=== PATIENT | female | born 1990 | race Caucasian/White ===

== ENCOUNTER 2017-10-09 16:15 | Observation (INO) | payer MEDICAID ==
[~2017-10-09] VITALS: Ht 170.2 cm; Wt 76.0 kg
[~2017-10-09 16:15] MED LIST: CALNTAB; IBUP-232 PO
[2017-10-09] MEDS ORDERED: LACTATED RINGER'S 1000 ML INJ 1,000 ML IV SCH (16:23)
[2017-10-09] MEDS ORDERED: DOCUSATE SODIUM 100 MG CAP PO PRN (16:30)
[2017-10-09] MEDS ORDERED: ZOLPIDEM TARTRATE 5 MG TAB PO PRN (16:30)
[2017-10-09] MEDS ORDERED: SODIUM CHLORIDE 0.9% FLUSH 10 ML FLUSH IV FLUSH PRN (16:30)
[2017-10-09] MEDS ORDERED: ONDANSETRON HCL 4 MG/2 ML VIAL IV PUSH PRN (16:30)
--- NOTE | 2017-10-09 16:45 | HHI.HP ---
HPI Chief Complaint admission for pre-eclampsia workup Travel History International Travel<30 Days: No Contact w/Intl Traveler<30Days: No Known Affected Area: No History of Present Illness HPI PT is a 27 yo with iup at 32w 2days being admitted for pre-eclampsia workup. She was seen at 30w visit and was c/o feeling dizzy and seeing spots. She had PIH labs with P:C of 0.39 and was advised to perform a 24 hour urine. Collection noted 525 mg of protein. She did have hyperemesis during first and second trimester. Also had migraines, needed fioricet. Good FM, no ctx/vb/LOF. Weeks Gestation: 32 Para: 2 : 3 History Past Medical History Narrative Medical H/o cervical dysplasia s/p excisional procedure x 2 in 2012 Obstetric History Obstetric History G1 03/2008 M 39 weeks, 7 lb 14 oz, no complications G2 05/2016 F 38w 6lb 14 oz Past Surgical History Narrative Surgical Leep and CKC Social History Alcohol Use: No Tobacco Use: No Substance Abuse: Yes (MJ use) Allergies-Medications (Allergen,Severity, Reaction): Coded Allergies: acetaminophen (Unverified Allergy, Severe, NAUSEA AND VOMITING, 02/19/17) hydrocodone (Unverified Allergy, Severe, NAUSEA AND VOMITING, 02/19/17) penicillin G (Unverified Allergy, Mild, Nausea/Vomiting, 02/19/17) Home Meds Active Scripts Ibuprofen (Ibuprofen) 600 Mg Tab, 600 MG PO Q6H Y for CRAMPING, #30 TAB Prov:Merlene Zarate MD 05/14/16 Reported Medications Vitamin (Calna) 1 Tab Tab 05/13/16 Review of Systems General / Constitutional: Other (light headed) Eyes: Visual changes HENT: Lightheadedness Cardiovascular: No: Irregular Rhythm, Chest Pain or Discomfort, Palpitations, Tachycardia, Syncope, Varicosities, Edema, Cyanosis Respiratory: No: Cough, Short of Breath, Other Gastrointestinal: No: Nausea, Vomiting, Diarrhea Genitourinary: No: Decreased Urinary Output, Oliguria Musculoskeletal: No: Limited ROM, Weakness, Cramping, Edema, Pain Psychiatric: No: Depression, Suicidal Ideations, Homicidal Ideation Endocrine: No: Heat Intolerance, Cold Intolerance, Polydipsia, Polyuria, Other Hematologic/Lymphatic: No Easy Bruising, No Lymph Node Enlargement, No Other Physical Exam Narrative GENERAL: Well-nourished, well-developed patient. exam from office visit 09/24/17 SKIN: Warm and dry. HEAD: Normocephalic and atraumatic. EYES: No scleral icterus. No injection or drainage. ENT: No nasal drainage noted. Mucous membranes pink. Airway patent. NECK: Supple, trachea midline. No JVD. CARDIOVASCULAR: Regular rate and rhythm without murmurs, gallops, or rubs. RESPIRATORY: Breath sounds equal bilaterally. No accessory muscle use. ABDOMEN/GI: Abdomen soft, non-tender, bowel sounds present, no rebound, no guarding Gravid to 31 weeks size Fundal Height: 31 GENITOURINARY: defered Uterine Contractions: [-] FHT's: Normal FHT on Doppler EXTREMITIES: No cyanosis. Trace edema BACK: Nontender without obvious deformity. No CVA tenderness. NEUROLOGICAL: Awake and alert. Motor and sensory grossly within normal limits. Five out of 5 muscle strength in all muscle groups. Normal speech. Caprini VTE Risk Assessment Caprini VTE Risk Assessment: No/Low Risk (score <= 1) Caprini Risk Assessment Model Point Value = 1 Point Value = 2 Point Value = 3 Point Value = 5 Age 41-60 Minor surgery BMI > 25 kg/m2 Swollen legs Varicose veins or History of unexplained or recurrent spontaneous Oral contraceptives or hormone replacement Sepsis (< 1 month) Serious lung disease, including pneumonia (< 1 month) Abnormal pulmonary function Acute myocardial infarction Congestive heart failure (< 1 month) History of inflammatory bowel disease Medical patient at bed rest Age 61-74 Arthroscopic surgery Major open surgery (> 45 min) Laparoscopic surgery (> 45 min) Malignancy Confined to bed (> 72 hours) Immobilizing plaster cast Central venous access Age >= 75 History of VTE Family history of VTE Factor V Leiden Prothrombin [id number] Lupus anticoagulant Anticardiolipin antibodies Elevated serum homocysteine Heparin-induced thrombocytopenia Other congenital or acquired thrombophilia Stroke (< 1 month) Elective arthroplasty Hip, pelvis, or leg fracture Acute spinal cord injury (< 1 month) Prophylaxis Regimen Total Risk Factor Score Risk Level Prophylaxis Regimen 0-1 Low Early ambulation 2 Moderate Order ONE of the following: *Sequential Compression Device (SCD) *Heparin 5000 units SQ BID 3-4 Higher Order ONE of the following medications: *Heparin 5000 units SQ TID *Enoxaparin/Lovenox 40 mg SQ daily (WT < 150 kg, CrCl > 30 mL/min) *Enoxaparin/Lovenox 30 mg SQ daily (WT < 150 kg, CrCl > 10-29 mL/min) *Enoxaparin/Lovenox 30 mg SQ BID (WT < 150 kg, CrCl > 30 mL/min) AND/OR *Sequential Compression Device (SCD) 5 or more Highest Order ONE of the following medications: *Heparin 5000 units SQ TID (Preferred with Epidurals) *Enoxaparin/Lovenox 40 mg SQ daily (WT < 150 kg, CrCl > 30 mL/min) *Enoxaparin/Lovenox 30 mg SQ daily (WT < 150 kg, CrCl > 10-29 mL/min) *Enoxaparin/Lovenox 30 mg SQ BID (WT < 150 kg, CrCl > 30 mL/min) AND *Sequential Compression Device (SCD) Data Data Vital Signs Reviewed: Yes Orders Orders Place In Observation (10/09/17 ) Vital Signs (Adult) Q5MX4,Q15MX4,Q30MX2,Q1H (10/09/17 16:23) Activity Bed Rest (10/09/17 16:23) Intake + Output Q1H (10/09/17 16:23) Notify Parameters (10/09/17 16:23) Heart CONTINUOUS (10/09/17 16:23) Urinary Catheter Management NO.Q8H (10/09/17 16:23) ^ Check Deep Tendon Reflexes Q1H (10/09/17 16:23) Lactated Ringer's 1000 Ml Inj (Lr 1000 M (10/09/17 16:23) Sodium Chloride 0.9% Flush (Ns Flush) (10/09/17 16:30) Sodium Chloride 0.9% Flush (Ns Flush) (10/09/17 21:00) Betamethasone Inj (Celestone Soluspan In (10/09/17 16:30) Ondansetron Inj (Zofran Inj) (10/09/17 16:30) Docusate Sodium (Colace) (10/09/17 16:30) Wezjdnlm-Jbo-Sowbp-Iron Prenat (Stuartna (10/10/17 09:00) Zolpidem (Ambien) (10/09/17 16:30) Cbc No Diff, Includes Plts (10/09/17 16:23) Cbc No Diff, Includes Plts (10/10/17 06:00) Comprehensive Metabolic Panel (10/09/17 16:23) Comprehensive Metabolic Panel (10/10/17 06:00) Uric Acid (10/09/17 16:23) Uric Acid (10/10/17 06:00) Urinalysis - C+S If Indicated (10/09/17 16:23) Total Protein 24hr Urine (10/09/17 16:23) Creatinine 24 Hr Urine (10/09/17 16:23) Us Ob Bpp Wo Nst (10/10/17 09:00) Specimen To Be Collected PRN (10/09/17 16:23) Diet Regular Basic (10/09/17 Dinner) Assessment/Plan Problem List: (1) Proteinuria affecting in third trimester ICD Codes: O12.13 - Gestational proteinuria, third trimester (2) 32 weeks gestation of ICD Codes: Z3A.32 - 32 weeks gestation of Assessment and Plan PT is a 27 yo with iup at 32w 2days being admitted for pre-eclampsia workup. 1) Rule out pre-eclampsia- She has had migraines during this , now seeing spots. Outpatient workup significant for P:C of 0.39 and a 24 hour urine protein 525 mg.. Will perform serial BP, PIH labs, repeat 24 hour urine, and administer bms in the event that early delivery is necessary. 2) Ascsu pap with h/o leep- pp colpo 3) UDS + MJ, has used fioricet sparingly 4) Hyperemesis- now resolved 5) UDF- Merlene Masters PP, MD Oct 09, 2017 16:45
[2017-10-09 16:47] VITALS: BP 145/84; PULSE 112
[2017-10-09] MEDS: BETAMETHASONE SOD PHOS/ACETATE SUSP 30 MG/5 ML VIAL IM SCH (17:40)
[2017-10-09 17:53] VITALS: TEMP 97.7
[2017-10-09 17:54] VITALS: RESP 18
[2017-10-09 17:55] VITALS: BP 130/70; PULSE 84
[2017-10-09] MEDS ORDERED: ACETAMINOPHEN 325 MG TAB PO PRN (18:30)
[2017-10-09 18:43] LABS: HEMATOCRIT 31.1 % (35.0-46.0); HEMOGLOBIN 10.5 GM/DL (11.6-15.3); MEAN CORPUSCULAR HEMOGLOBIN 29.8 PG (27.0-34.0); MEAN CORPUSCULAR HGB CONC 33.9 % (32.0-36.0); MEAN PLATELET VOLUME 7.9 FL (7.0-11.0); PLATELET COUNT 312 TH/MM3 (150-450); RED BLOOD COUNT 3.53 MIL/MM3 (4.00-5.30); RED CELL DISTRIBUTION WIDTH 13.6 % (11.6-17.2); WHITE BLOOD COUNT 14.2 TH/MM3 (4.0-11.0)
[2017-10-09 18:47] LABS: BILIRUBIN, URINE NEG (NEG); BLOOD, URINE NEG (NEG); GLUCOSE,URINE NEG (NEG); KETONE, URINE NEG (NEG); NITRITE,URINE NEG (NEG); PH, URINE 6.5 (5.0-8.5); SQUAMOUS EPITHELIAL CELL URINE 5 /hpf (0-5); URINE COLOR LIGHT-YELLOW (YELLW/STRAW); URINE LEUKOCYTE ESTERASE MOD (NEG)
[2017-10-09 19:03] LABS: AST (GOT) 13 U/L (15-37); BICARBONATE 19.6 MEQ/L (21.0-32.0); BLOOD UREA NITROGEN 6 MG/DL (7-18); CALCIUM 8.3 MG/DL (8.5-10.1); CHLORIDE 107 MEQ/L (98-107); CREATININE 0.46 MG/DL (0.50-1.00); GLOMERULAR FILTRATION RATE 163 ML/MIN (>89); GLUCOSE,RANDOM 82 MG/DL (74-106); SODIUM (NA) 138 MEQ/L (136-145)
[2017-10-09 19:08] LABS: ALKALINE PHOSPHATASE 122 U/L (45-117); ALT (GPT) 12 U/L (10-53); TOTAL BILIRUBIN ADULT 0.2 MG/DL (0.2-1.0); TOTAL PROTEIN 7.1 GM/DL (6.4-8.2)
[2017-10-09 19:50] VITALS: BP 124/62; PULSE 92; RESP 18; TEMP 97.7
[2017-10-09 21:14] VITALS: BP 112/69; PULSE 90
[2017-10-09] MEDS: SODIUM CHLORIDE 0.9% FLUSH 10 ML FLUSH IV FLUSH SCH (21:16)
[2017-10-10] VITALS (9 sets, daily range): BP systolic 103–117; BP diastolic 41–68; PULSE 76–92; RESP 18–20; TEMP 97.9–98.1
[2017-10-10 05:50] LABS: HEMATOCRIT 28.7 % (35.0-46.0); MEAN CELL VOLUME 87.8 FL (80.0-100.0); MEAN CORPUSCULAR HEMOGLOBIN 30.8 PG (27.0-34.0); MEAN CORPUSCULAR HGB CONC 35.1 % (32.0-36.0); MEAN PLATELET VOLUME 7.7 FL (7.0-11.0); PLATELET COUNT 275 TH/MM3 (150-450); RED BLOOD COUNT 3.26 MIL/MM3 (4.00-5.30); RED CELL DISTRIBUTION WIDTH 13.3 % (11.6-17.2); WHITE BLOOD COUNT 17.6 TH/MM3 (4.0-11.0)
[2017-10-10 06:17] LABS: ALBUMIN 2.8 GM/DL (3.4-5.0); AST (GOT) 12 U/L (15-37); BICARBONATE 21.3 MEQ/L (21.0-32.0); BLOOD UREA NITROGEN 6 MG/DL (7-18); CALCIUM 8.4 MG/DL (8.5-10.1); CHLORIDE 104 MEQ/L (98-107); CREATININE 0.61 MG/DL (0.50-1.00); GLOMERULAR FILTRATION RATE 118 ML/MIN (>89); GLUCOSE,RANDOM 137 MG/DL (74-106); SODIUM (NA) 136 MEQ/L (136-145)
[2017-10-10 06:18] LABS: ALT (GPT) 13 U/L (10-53)
[2017-10-10 06:20] LABS: ALKALINE PHOSPHATASE 117 U/L (45-117); TOTAL BILIRUBIN ADULT 0.3 MG/DL (0.2-1.0)
--- NOTE | 2017-10-10 07:09 | HHI.PR ---
JAILOR Note Note S: Patient is felt well overall overnight, some episodes of mild chest pain and difficulty breathing, that resolved spontaneously, she denies any current headache, visual changes, epigastric pain right upper quadrant pain. Additional information is that she states as an outpatient she has not felt well and herself, she is noticed lethargy, dyspnea with exertion and increasing in swelling. She also has had migraines on and off this that have been treated with Fioricet. O: Exam: deferred FHTs: 110-115, moderate variability, accelerations present, no decelerations. TOCO: rare contractions A/P 27 yo at 32w 3d admitted for pre-eclampsia workup 1. IUP: cat 1 tracing - BID EFW and toco - Female fetus. 2. Rule out pre-eclampsia: Patient at this time has no signs or symptoms of severe features, her blood pressures have been mostly normotensive, she had one mild range systolic on arrival. Pt did have outpatient work up for her sx of headaches, swelling and visual changes, no prior elevated BPs. Normal HELLP labs on 09/27 and again x2 here, on 09/27 only signifcance was P:C of 0.39 and a 24 hour urine protein 525 mg. - growth and BPP ordered today -Repeat 24-hour urine pending -Status post betamethasone #1, #2 later today, ordered as a precaution if she is moving toward premature delivery. Dispo: Likely for discharge home later this afternoon or tomorrow if workup continues to be unremarkable, discussed that likely will recommend blood pressure monitoring at home, testing and close follow-up in the office. 3. Dyspnea/chest pain/swelling: Will order maternal echo to rule out any cardiomyopathy, my suspicion is low at this point. 4. ASCUS pap / h/o LEEP: plan for colpo PP. 5. UDS + MJ: during , repeat UDS pending here. 6. Migraines: none currently, has had headaches frequently as an outpatient. 7. GBS positive: PCR pos, culture pending, will need antibiotics in labor, penicillin allergic. Trent Munoz MD Oct 10, 2017 07:09
[2017-10-10] MEDS: SODIUM CHLORIDE 0.9% FLUSH 10 ML FLUSH IV FLUSH SCH (07:49)
[2017-10-10] MEDS ORDERED: MULTIVIT/MIN/PREN/FOL AC/IRON PRENATAL TAB PO SCH (09:00)
--- NOTE | 2017-10-10 16:46 | ECHRPT ---
Indication: SOB CONCLUSIONS Normal left ventricular size and wall thickness. The left ventricular systolic function is normal wi th an estimated ejection fraction in the range of 60-65%. Normal wall motion. Trace mitral valve regurgitation. BP: / HR: Rhythm: MEASUREMENTS (Male / Female) Normal Values Technical Quality: 2D ECHO LV Diastolic Diameter PLAX 4.4 cm 4.2 - 5.9 / 3.9 - 5.3 cm LV Systolic Diameter PLAX 3.0 cm IVS Diastolic Thickness 1.1 cm 0.6 - 1.0 / 0.6 - 0.9 cm LVPW Diastolic Thickness 0.9 cm 0.6 - 1.0 / 0.6 - 0.9 cm LV Relative Wall Thickness 0.5 RV Internal Dim ED PLAX 2.7 cm LA Systolic Diameter LX 3.4 cm 3.0 - 4.0 / 2.7 - 3.8 cm DOPPLER LVOT Peak Velocity 143.0 cm/s LVOT Peak Gradient 8.2 mmHg Mitral E Point Velocity 136.0 cm/s Mitral A Point Velocity 115.0 cm/s Mitral E to A Ratio 1.2 TR Peak Velocity 176.0 cm/s TR Peak Gradient 12.4 mmHg Right Atrial Pressure 5.0 mmHg Pulmonary Artery Systolic Pressu 17.4 mmHg Right Ventricular Systolic Press 17.4 mmHg FINDINGS LEFT VENTRICLE Normal left ventricular size and wall thickness. The left ventricular systolic function is normal wi th an estimated ejection fraction in the range of 60-65%. Normal wall motion. RIGHT VENTRICLE Normal right ventricular size and systolic function. LEFT ATRIUM The left atrial size is normal. RIGHT ATRIUM The right atrial size is normal. ATRIAL SEPTUM Normal atrial septal thickness without atrial level shunting by limited color doppler interrogation. AORTA The aortic root and proximal ascending aorta are normal in size on limited imaging. MITRAL VALVE Trace mitral valve regurgitation. AORTIC VALVE Trileaflet aortic valve. No aortic valve stenosis or regurgitation. TRICUSPID VALVE Structurally normal tricuspid valve. No tricuspid valve stenosis or regurgitation. PULMONARY VALVE No pulmonary valve regurgitation or stenosis. VESSELS The inferior vena cava is normal in size. PERICARDIUM No pericardial effusion. Loy Bryan MD (Electronically Signed) Final Date:10 October 2017 16:45
[2017-10-10] MEDS: BETAMETHASONE SOD PHOS/ACETATE SUSP 30 MG/5 ML VIAL IM SCH (17:10)
[2017-10-10] MEDS ORDERED: SERT-132 PO (17:31)
--- NOTE | 2017-10-10 17:58 | HHI.DS ---
Admission Date Oct 09, 2017 at 16:15 Discharge Date: Oct 10, 2017 Admitting Diagnosis Diagnosis: Brief History Discharge Diagnosis: 1. Single intrauterine at 32 weeks 3days 2. GBS positive 3. Proteinuria 4. Migraines 27 yo who presented at 32w 2d for rule out preeclampsia, she had 1 elevated systolic BP on arrival, for 24hr she then had normal BPs, pt had normal HELLP labs x2, no prior hx of elevated BPs during the , she did have a home 24 hour urine done earlier in the that was 525 mg (09/27), during her antepartum stay she had a growth that was normal, 1857g (17%), 8/8 BPP. She had symptoms of intermitent chest pain, swelling and dyspnea through the past weeks as an outpatient had maternal echo during her admission was also normal, EF 60-65%. Pt received betamethasone for lung maturity in case she was moving toward delivery. However after 24 hours of observation she was sent home with preeclampsia precautions and plans to follow up closely was an outpatient and review her [address] Zarate tomorrow. Dr. Gandhi her primary OB saw her prior to discharge, please see her documentation for any further details or updates to her care. Pt Condition on Discharge: Good Discharge Disposition: Discharge Home Discharge Instructions Diet Instructions: As Tolerated, No Restrictions Activities You Can Perform: Regular-No Restrictions Activities to Avoid: Strenuous Activity Follow up Referrals: HVAC REFRIGERATION TECHNICIAN @ [facility] with Merlene Zarate MD New Medications: Sertraline (Sertraline) 50 Mg Tab 50 MG PO DAILY for Depression Control, #30 TAB 0 Refills Trent Munoz MD Oct 10, 2017 17:58
[2017-10-10 21:51] LABS: CREATININE 24 HOUR, URINE 1.24 GM/24HR (0.63-2.50)
== END 2017-10-10 18:03 | disposition home or self-care (01) ==
LOC: H2EA 16:15
PROVIDERS: ADMIT Obstetrics & Gynecology; ATTEND Obstetrics & Gynecology
DX: O12.13 Gestational proteinuria, third trimester (principal); O99.353 Diseases of the nervous system complicating pregnancy, third trimester; G43.909 Migraine, unspecified, not intractable, without status migrainosus; O99.820 Streptococcus B carrier state complicating pregnancy; Z3A.32 32 weeks gestation of pregnancy; Z87.410 Personal history of cervical dysplasia
CPT/HCPCS: 76816; 76819; 76820; 80053; 81001; 82570; 84157; 84550; 85027; 87081; 87150; 93306; 96372; G0378; J0702

== ENCOUNTER 2017-11-16 09:52 | Emergency (ER) | payer MEDICAID ==
[~2017-11-16 09:52] MED LIST changes: +SERT-132 PO
--- NOTE | 2017-11-16 10:40 | PD ---
HPI Chief Complaint Vaginal bleeding after intercourse Travel History International Travel<30 Days: No Contact w/Intl Traveler<30Days: No Known Affected Area: No History of Present Illness HPI 27-year-old 002, IUP at 37.5 care complicated by anemia, history of abnormal Paps with a LEEP in the past The patient presents complaining of bright red bleeding that started after intercourse approximately 8-830 this morning. She reports that she started having some irregular contractions at the same time but is not able to delineate how frequently she is experiencing the contractions. She reports that she has bled once during intercourse before but it was light pinkish discharge. She reports that today was a red blood with a spot on her pad about size of a $0.25-$0.50 piece. She reports that she is not currently having a large amount of bleeding. She denies any leaking of fluid. She reports good movement. She has no other obstetrical complaints today. Weeks Gestation: 37 Para: 2 : 3 History Past Medical History Medical History: Denies Significant Hx Obstetric History Obstetric History 002 2 History of LEEP for abnormal Paps Denies other sexually transmitted infection Past Surgical History Narrative Surgical LEEP Family History Narrative Family History DM, HTN, asthma, CAD, [place] Social History Alcohol Use: No Tobacco Use: No Substance Abuse: No Allergies-Medications (Allergen,Severity, Reaction): Coded Allergies: penicillin G (Unverified Allergy, Mild, Nausea/Vomiting, 02/19/17) Home Meds Active Scripts Sertraline (Sertraline) 50 Mg Tab, 50 MG PO DAILY for Depression Control, #30 TAB 0 Refills Prov:Merlene Zarate MD 10/10/17 Ibuprofen (Ibuprofen) 600 Mg Tab, 600 MG PO Q6H Y for CRAMPING, #30 TAB Prov:Merlene Zarate MD 05/14/16 Reported Medications Vitamin (Calna) 1 Tab Tab 05/13/16 Review of Systems Except as stated in HPI: all other systems reviewed are Neg Physical Exam Narrative GENERAL: Well-nourished, well-developed patient. SKIN: Warm and dry. HEAD: Normocephalic and atraumatic. EYES: No scleral icterus. No injection or drainage. ENT: No nasal drainage noted. Mucous membranes pink. Airway patent. NECK: Supple, trachea midline. No JVD. CARDIOVASCULAR: Regular rate and rhythm without murmurs, gallops, or rubs. RESPIRATORY: Breath sounds equal bilaterally. No accessory muscle use. BREASTS: Deferred ABDOMEN/GI: Abdomen soft, non-tender, bowel sounds present, no rebound, no guarding Gravid GENITOURINARY: External Genitalia: intact and normal in appearance. Normal BUS. No cervical or vaginal masses. Speculum exam reveals grossly normal rugated and a small amount of pinkish/mejia colored discharge admixed with physiologic discharge. There is no evidence of active vaginal bleeding and no blood is noted in the vault. Cervix is visibly normal. SVE as per EMR, no evidence of active labor. FHT's: heart tones are in the 120s with moderate long-term variability, good accelerations, no decelerations noted. Biophysical profile was performed at the bedside and the placenta appeared normal with no evidence of placental injury or retroplacental clot. BPP was 8/8 at the bedside with 10 out of 10 including the reactive NST. EXTREMITIES: No cyanosis or edema. BACK: Nontender without obvious deformity. NEUROLOGICAL: Awake and alert. Motor and sensory grossly within normal limits. Normal speech. Psychiatric Kenji: Grossly normal memory and affect Musculoskeletal: Grossly normal range of motion, gait, muscle strength MDM Plan Assessment/plan: 1. IUP at 37.5 2. Postcoital bleeding: No evidence of active bleeding on examination with only small amount of physiologic discharge admixed with pinkish/brown discharge. Strict bleeding precautions were given. 3. No evidence of active labor, labor precautions are given 4. Reassuring testing: Patient had a BPP 8/8 with a reactive NST and category 1 heart rate tracing for a total BPP of 10/10. heart rate tracing is reassuring and appropriate for gestational age. kick counts daily. 5. O+ 6. Follow-up with primary OB in 2-3 days or sooner if needed Diagnosis Diagnosis: Primary Impression: False labor after 37 weeks of gestation without delivery Additional Impression: Postcoital bleeding Disposition: 01 DISCHARGE HOME Condition: Dee Dee Hanson MD November 16, 2017 10:40
--- NOTE | 2017-11-16 10:42 | PD ---
History of Present Illness History of Present Illness NST/BPP report Indications: IUP at 37w, anemia, bleeding after intercourse FHR: heart tones with baseline in the 120s, moderate fdc variability, good accelerations, and no decelerations noted. This is a category 1 heart rate tracing and a reactive NST. BPP: Numerous flexion/extension movement, numerous gross body movements, > 30sec continuous breathing, GLADIS 13.2 with 2 pockets >2x2cm [place]: irregular contractions Final dx: IUP at 37w, postcoital bleeding with apparent resolution, anemia, reassuring testing F/U: as clinically indicated Dee Dee Mane MD November 16, 2017 10:42
== END 2017-11-16 13:02 | disposition home or self-care (01) ==
LOC: HOBED 09:52
DX: O47.1 False labor at or after 37 completed weeks of gestation (principal); N93.0 Postcoital and contact bleeding; O99.013 Anemia complicating pregnancy, third trimester; Z3A.37 37 weeks gestation of pregnancy
CPT/HCPCS: 59025; 76815

== ENCOUNTER 2017-11-20 12:22 | Emergency (ER) | payer MEDICAID ==
--- NOTE | 2017-11-20 12:52 | PD ---
HPI Chief Complaint Contractions Travel History International Travel<30 Days: No Contact w/Intl Traveler<30Days: No Known Affected Area: No History of Present Illness HPI 27-year-old 002, IUP at 38.2 care complicated by history of LEEP This patient presents complaining of the onset of contractions at 330 this morning. She reports she has been having contractions for the past week but they increased in intensity at that time. She reports that they again increased in intensity and frequency at approximately 6 AM. She reports she is feeling contractions every 3-6 minutes. She denies any aggravating features or attempted treatments. The contractions have worsened with time. She reports good movement. She denies any leaking of fluid or vaginal bleeding. She reports that she is uncomfortable with the contractions and would like to be delivered. She had intercourse yesterday but reports that it did not cause her to go into labor. Weeks Gestation: 38 Para: 2 : 3 History Obstetric History Obstetric History 002 2 history of LEEP for abnormal Paps Past Surgical History Narrative Surgical LEEP Family History Narrative Family History DM, asthma, CAD, [place], HTN Social History Alcohol Use: No Tobacco Use: No Substance Abuse: No Allergies-Medications (Allergen,Severity, Reaction): Coded Allergies: penicillin G (Unverified Allergy, Mild, Nausea/Vomiting, 02/19/17) Home Meds Active Scripts Sertraline (Sertraline) 50 Mg Tab, 50 MG PO DAILY for Depression Control, #30 TAB 0 Refills Prov:Merlene Zarate MD 10/10/17 Ibuprofen (Ibuprofen) 600 Mg Tab, 600 MG PO Q6H Y for CRAMPING, #30 TAB Prov:Merlene Zarate MD 05/14/16 Reported Medications Vitamin (Calna) 1 Tab Tab 05/13/16 Review of Systems Except as stated in HPI: all other systems reviewed are Neg Physical Exam Narrative GENERAL: Well-nourished, well-developed patient. SKIN: Warm and dry. HEAD: Normocephalic and atraumatic. EYES: No scleral icterus. No injection or drainage. ENT: No nasal drainage noted. Mucous membranes pink. Airway patent. NECK: Supple, trachea midline. No JVD. CARDIOVASCULAR: Regular rate and rhythm without murmurs, gallops, or rubs. RESPIRATORY: Breath sounds equal bilaterally. No accessory muscle use. BREASTS: Deferred ABDOMEN/GI: Abdomen soft, non-tender, bowel sounds present, no rebound, no guarding Gravid GENITOURINARY: External Genitalia: intact and normal in appearance. Normal BUS. No cervical or vaginal masses noted. Grossly normal rugated. Physiologic discharge noted. SVE 4/80/-2, posterior. SVE recheck without significant exchange operator 3 hours. FHT's: heart tones are in the 120s with moderate long-term variability, good accelerations, no decelerations noted. As a reactive NST and category 1 heart rate tracing. EXTREMITIES: No cyanosis or edema. BACK: Nontender without obvious deformity. NEUROLOGICAL: Awake and alert. Motor and sensory grossly within normal limits. Normal speech. Psychiatric: Grossly normal memory and affect Musculoskeletal: Grossly normal range of motion, gait, muscle strength MDM Plan Assessment/plan: 1. IUP at 38.2 2. Contractions at term: no evidence of active labor with no significant cervical exchange operator observation period. Discussed with patient she is only 38 weeks, so needs to show signs of active labor with active cervical change or have other indications for delivery prior to 39 weeks. Strict labor precautions given. 3. well-being: Reassuring testing with reactive NST and category 1 heart rate tracing. The FHh is reassuring and appropriate for gestational age. kick counts daily. 4. History of LEEP 5. Follow-up with primary OB in 2-3 days or sooner if needed Diagnosis Diagnosis: Primary Impression: 38 weeks gestation of Additional Impression: False labor at or after 37 completed weeks of gestation, antepartum Disposition: 01 DISCHARGE HOME Condition: Dee Dee Hanson MD November 20, 2017 12:52
[2017-11-20] MEDS ORDERED: ASCO100029 (20:55)
[2017-11-20] MEDS ORDERED: ZANT150T2 PO (20:55)
[2017-11-20] MEDS ORDERED: AMBI5TAB PO (20:55)
[2017-11-20] MEDS ORDERED: MAGN100T2 PO (20:55)
[2017-11-20] MEDS ORDERED: FERR325T18 PO (20:55)
[2017-11-21] MEDS ORDERED: IBUP-232 PO (09:58)
[2017-11-21] MEDS ORDERED: ZOLO50TA PO (09:58)
== END 2017-11-20 16:25 | disposition home or self-care (01) ==
LOC: HOBED 12:22
DX: O47.1 False labor at or after 37 completed weeks of gestation (principal); Z3A.38 38 weeks gestation of pregnancy; Z98.890 Other specified postprocedural states
CPT/HCPCS: 59025

== ENCOUNTER 2017-11-20 20:06 | Inpatient (IN) | payer MEDICAID ==
[2017-11-20] VITALS (20 sets, daily range): BP systolic 85–164; BP diastolic 57–91; PULSE 81–108; RESP 18; TEMP 97.8
[~2017-11-20] VITALS: Ht 170.2 cm; Wt 78.9 kg
[2017-11-20] MEDS ORDERED: LACTATED RINGER'S 1000 ML INJ 1,000 ML IV SCH (20:33)
[2017-11-20] MEDS ORDERED: LACTATED RINGER'S 1000 ML INJ 1,000 ML IV PRN (20:33)
--- NOTE | 2017-11-20 20:33 | PD ---
HPI Chief Complaint Contractions Travel History International Travel<30 Days: No Contact w/Intl Traveler<30Days: No Known Affected Area: No History of Present Illness HPI 27-year-old 002, IUP at 38.2 care complicated by history of LEEP The patient was seen and evaluated for labor this afternoon and after prolonged observation was noted to not be in active labor. As previously noted, she reports the onset of contractions at 330 this morning. She reports she has been having contractions for the past week but they increased in intensity at that time. She reports that they again increased in intensity and frequency at approximately 6 AM. She reports she was feeling contractions every 3-6 minutes when she . She denies any aggravating features or attempted treatments. The contractions have worsened with time. After active labor was ruled out the patient went to the mall and walked more. She reports her contractions significantly increased in intensity about 45 minutes before presenting. She reports good movement. She denies any leaking of fluid or vaginal bleeding. Weeks Gestation: 38 Para: 2 : 3 Allergies-Medications (Allergen,Severity, Reaction): Coded Allergies: penicillin G (Unverified Allergy, Mild, Nausea/Vomiting, 02/19/17) Home Meds Active Scripts Sertraline (Sertraline) 50 Mg Tab, 50 MG PO DAILY for Depression Control, #30 TAB 0 Refills Prov:Merlene Zarate MD 10/10/17 Reported Medications Zolpidem (Ambien) 5 Mg Tab, 5 MG PO HS Y for INSOMNIA, TAB 0 Refills 11/20/17 Ascorbic Acid (Vitamin C) 1,000 Mg Tablet.er, 3000 11/20/17 Magnesium Citrate (Magnesium Citrate) 100 Mg Tab, 750 MG PO DAILY Y for CONSTIPATION, TAB 0 Refills 11/20/17 Ferrous Sulfate (Ferrous Sulfate) 325 Mg (65 Mg Iron) Tablet, 325 MG PO DAILY for Nutritional Supplement, #30 TAB 0 Refills 11/20/17 Ranitidine (Zantac) 150 Mg Tab, 150 MG PO BID for Reduce Stomach Acid, #60 TAB 0 Refills 11/20/17 Vitamin (Calna) 1 Tab Tab 05/13/16 Discontinued Scripts Ibuprofen (Ibuprofen) 600 Mg Tab, 600 MG PO Q6H Y for CRAMPING, #30 TAB Prov:Merlene Zarate MD 05/14/16 Review of Systems Except as stated in HPI: all other systems reviewed are Neg Physical Exam Narrative GENERAL: Well-nourished, well-developed patient. SKIN: Warm and dry. HEAD: Normocephalic and atraumatic. EYES: No scleral icterus. No injection or drainage. ENT: No nasal drainage noted. Mucous membranes pink. Airway patent. NECK: Supple, trachea midline. No JVD. CARDIOVASCULAR: Regular rate and rhythm without murmurs, gallops, or rubs. RESPIRATORY: Breath sounds equal bilaterally. No accessory muscle use. BREASTS: deferred ABDOMEN/GI: Abdomen soft, non-tender, bowel sounds present, no rebound, no guarding Gravid GENITOURINARY: External Genitalia: intact and normal in appearance. Normal BUS. No cervical or vaginal masses and physiologic discharge noted. SVE 5-6/90/-1 with BBOW. FHT's: heart tones are in the 120s with moderate long-term variability, good accelerations, no decelerations noted. This category 1 heart rate tracing reactive NST. EXTREMITIES: No cyanosis or edema. BACK: Nontender without obvious deformity. NEUROLOGICAL/musculoskeletal: Awake and alert. Motor and sensory grossly within normal limits. Grossly normal muscle strength. Normal speech. Grossly normal range of motion, gait Psychiatric: Grossly normal memory and affect Data Data Orders Orders Ob (2e) Additional Admit Info (11/20/17 20:29) MDM Plan Assessment/plan: 1. IUP at 38.2 2. Active labor: The patient has re-presented in active labor and will be admitted to Dr. Daly. Dr. Daly was notified and labor and delivery orders placed. 3. GBS positive: Will start prophylactic antibiotics 4. Reassuring testing with reactive NST and category 1 heart rate tracing, continue EFM 5. History of LEEP 6. Epidural if desired for pain control Dee Dee Mane MD November 20, 2017 20:32
[2017-11-20] MEDS ORDERED: CITRIC ACID-SODIUM CITRATE LIQ 30 ML UDC PO SCH (20:45)
[2017-11-20] MEDS ORDERED: MINERAL OIL 10 ML VIAL TOPICAL PRN (20:45)
[2017-11-20] MEDS ORDERED: SODIUM CHLORID 0.9% 500 ML INJ 500 ML IV PRN (20:45)
[2017-11-20] MEDS ORDERED: PENICILLIN G POTASSIUM INJ 5,000,000 UNITS in SODIUM CHLORIDE 0.9% INJ 100 ML IV ONE (20:45)
[2017-11-20] MEDS ORDERED: PROMETHAZINE INJ 25 MG/ML VIAL IM PRN (20:45)
[2017-11-20] MEDS ORDERED: LIDOCAINE HCL 1% 50 ML VIAL I-DERMAL PRN (20:45)
[2017-11-20] MEDS ORDERED: OXYTOCIN 30 UNITS-500ML PREMIX 500 ML IV ONE (20:45)
[2017-11-20] MEDS ORDERED: LIDOCAINE HCL 1% 50 ML VIAL INFIL PRN (20:45)
[2017-11-20] MEDS ORDERED: SODIUM CHLOR 0.9% 1000 ML INJ 1,000 ML IV PRN (20:53)
[2017-11-20] MEDS ORDERED: ASCO100029 (20:55)
[2017-11-20] MEDS ORDERED: AMBI5TAB PO (20:55)
[2017-11-20] MEDS ORDERED: MAGN100T2 PO (20:55)
[2017-11-20] MEDS ORDERED: ZANT150T2 PO (20:55)
[2017-11-20] MEDS ORDERED: FERR325T18 PO (20:55)
[2017-11-20] MEDS ORDERED: LIDOCAINE 1.5%/EPINEPHrine 1:200,000 PF 5 ML AMP ONE (21:32)
[2017-11-20] MEDS ORDERED: LIDOCAINE HCL 1% PF 5 ML AMPULE ONE (21:32)
[2017-11-20] MEDS ORDERED: fentaNYL 2MCG-BUPIV 0.125% INJ 100 ML ONE (21:44)
[2017-11-20 22:05] LABS: AUTOMATED NEUTROPHIL # 12.2 TH/MM3 (1.8-7.7); BASOPHIL % 0.2 % (0.0-2.0); EOSINOPHIL # 0.1 TH/MM3 (0-0.4); EOSINOPHIL % 0.8 % (0.0-4.0); HEMOGLOBIN 11.8 GM/DL (11.6-15.3); LYMPH % 12.2 % (9.0-44.0); LYMPHOCYTE # 1.9 TH/MM3 (1.0-4.8); MEAN CELL VOLUME 86.5 FL (80.0-100.0); MEAN CORPUSCULAR HGB CONC 34.7 % (32.0-36.0); MEAN PLATELET VOLUME 7.7 FL (7.0-11.0); MONO % 6.9 % (0.0-8.0); MONOCYTE # 1.1 TH/MM3 (0-0.9); NEUT % 79.9 % (16.0-70.0); PLATELET COUNT 317 TH/MM3 (150-450); RED BLOOD COUNT 3.93 MIL/MM3 (4.00-5.30); RED CELL DISTRIBUTION WIDTH 15.4 % (11.6-17.2); WHITE BLOOD COUNT 15.3 TH/MM3 (4.0-11.0)
[2017-11-20 22:11] LABS: AMORPHOUS SEDIMENT, URINE RARE; BILIRUBIN, URINE NEG (NEG); BLOOD, URINE MOD (NEG); GLUCOSE,URINE NEG (NEG); KETONE, URINE NEG (NEG); NITRITE,URINE NEG (NEG); PH, URINE 6.5 (5.0-8.5); SQUAMOUS EPITHELIAL CELL URINE 5 /hpf (0-5); URINE COLOR LIGHT-YELLOW (YELLW/STRAW); URINE LEUKOCYTE ESTERASE LARGE (NEG)
[2017-11-20] MEDS ORDERED: OXYTOCIN 30 UNITS-500ML PREMIX 500 ML IV PRN (23:00)
[2017-11-21] VITALS (17 sets, daily range): BP systolic 107–162; BP diastolic 54–145; PULSE 70–231; RESP 18; TEMP 97.7–98; O2SAT 97
[2017-11-21] MEDS ORDERED: PENICILLIN G POTASSIUM INJ 2,500,000 UNITS in SODIUM CHLORIDE 0.9% INJ 100 ML IV SCH (00:45)
--- NOTE | 2017-11-21 01:12 | PD.OB.DELI ---
Gest age assessed date: November 21, 2017 Gest age assessed time: 20:15 Active labor start date: November 21, 2017 Active labor start time: 20:15 Medical induction of labor?: No Artificial rupture of membrane: Yes Artificial ROM date: November 21, 2017 Artifical ROM time: 23:00 Anesthesia: Epidural Episiotomy: None Vaginal Delivery: Normal Presentation: Occiput anterior Nuchal Cord: None Delayed cord clamping (45 sec): Yes Infant: Female Delivery date: November 21, 2017 Delivery time: 01:01 One Minute : 9 Five Minute : 9 Placenta: Spontaneous delivery Laceration: No lacerations Estimated blood loss: 200cc Checo Daly MD November 21, 2017 01:12
[2017-11-21] MEDS ORDERED: WITCH HAZEL 50%/GLYCERIN 12.5% 40 PAD JAR TOPICAL PRN (01:15)
[2017-11-21] MEDS ORDERED: OXYTOCIN 30 UNITS-500ML PREMIX 500 ML IV SCH (01:15)
[2017-11-21] MEDS ORDERED: OXYTOCIN 10 UNIT/ML AMP XX PRN (01:15)
[2017-11-21] MEDS ORDERED: ALUMINUM/MAGNESIUM/SIMETH 30 ML CUP PO PRN (01:15)
[2017-11-21] MEDS ORDERED: BENZOCAINE 20% TOPICAL SPRAY 60 ML CAN TOPICAL PRN (01:15)
[2017-11-21] MEDS ORDERED: ONDANSETRON ODT 4 MG TAB PO PRN (01:15)
[2017-11-21] MEDS ORDERED: SODIUM CHLORIDE 0.9% FLUSH 10 ML FLUSH IV FLUSH PRN (01:15)
[2017-11-21] MEDS ORDERED: SODIUM CHLORIDE 0.9% FLUSH 10 ML FLUSH IV FLUSH SCH (01:15)
[2017-11-21] MEDS ORDERED: ACETAMINOPHEN 325 MG TAB PO PRN (01:15)
[2017-11-21] MEDS: IBUPROFEN 800 MG TAB PO PRN ×3 (03:30→21:16)
--- NOTE | 2017-11-21 07:10 | HHI.DCPOC ---
Discharge Care Plan Diagnosis: (1) Normal vaginal delivery (2) 38 weeks gestation of Your Health Problems Are: Vaginal delivery Report Symptoms to Your Doctor -Temperature above 100.5 degrees -Redness, of incision or excessive or foul smelling drainage -Unusual pain or calf pain -Increased vaginal bleeding -Painful or difficulty urinating -Feelings of extreme sadness or anxiety after 2 weeks Goals to Promote Your Health * To prevent worsening of your condition and complications * To maintain your health at the optimal level Directions to Meet Your Goals Take your medications as prescribed Follow your dietary instruction Follow activity as directed Ensure plenty of rest for recovery Drink fluids for hydration Keep your appointments as scheduled Take your immunizations and boosters as scheduled If your symptoms worsen call your PCP, if no PCP go to Urgent Care Center or Emergency Room Smoking is Dangerous to Your Health. Avoid second hand smoke Call the 24-hour crisis hotline for domestic abuse at Trent Munoz MD November 21, 2017 07:10
[2017-11-21] MEDS: SERTRALINE HCL 50 MG TAB PO SCH (08:18)
[2017-11-21] MEDS: oxyCODONE/ACETAMINOPHEN 5 MG/325 MG TAB PO PRN ×4 (08:19→22:22)
--- NOTE | 2017-11-21 09:57 | HHI.OB ---
Subjective Post Day: 0 Remarks doing well, pain controlled, VB < menses, mood stable, Objective Vitals/I&O Vital Signs Date Time Temp Pulse Resp B/P (MAP) Pulse Ox O2 Delivery O2 Flow Rate FiO2 11/21/17 03:59 98.0 83 18 131/78 (95) 97 11/21/17 02:36 18 11/21/17 02:30 18 11/21/17 02:16 71 120/71 (87) 11/21/17 02:15 18 11/21/17 02:00 18 11/21/17 02:00 124/78 (93) 11/21/17 01:45 18 11/21/17 01:45 78 107/76 (86) 11/21/17 01:31 72 120/68 (85) 11/21/17 01:30 18 11/21/17 01:16 231 162/145 (151) 11/21/17 01:15 97.9 11/21/17 01:15 18 11/21/17 01:00 92 136/90 (105) 11/21/17 00:45 71 122/63 (82) 11/21/17 00:30 74 127/64 (85) 11/21/17 00:16 87 137/77 (97) 11/21/17 00:00 88 11/21/17 00:00 119/54 (75) 11/20/17 23:45 91 114/57 (76) 11/20/17 23:31 92 103/61 (75) 11/20/17 23:15 81 120/61 (80) 11/20/17 23:00 87 132/75 (94) 11/20/17 22:45 83 126/81 (96) 11/20/17 22:45 95 11/20/17 22:36 91 126/68 (87) 11/20/17 22:35 89 11/20/17 22:30 90 138/73 (94) 11/20/17 22:30 84 11/20/17 22:26 144/80 (101) 11/20/17 22:26 88 11/20/17 22:25 96 11/20/17 22:20 91 164/80 (108) 11/20/17 22:20 104 11/20/17 22:15 90 11/20/17 22:15 86 126/77 (93) 11/20/17 22:14 84 120/75 (90) 11/20/17 22:11 108 85/60 (68) 11/20/17 22:10 97 11/20/17 22:05 101 11/20/17 22:05 97 144/91 (108) 11/20/17 22:00 89 11/20/17 22:00 18 11/20/17 22:00 105 141/81 (101) 11/20/17 21:58 98 129/80 (96) 11/20/17 21:18 82 129/82 (98) 11/20/17 20:42 97.8 Objective Remarks GENERAL: Well-nourished, well-developed patient. CARDIOVASCULAR: Regular rate and rhythm without murmurs, gallops, or rubs. RESPIRATORY: Breath sounds equal bilaterally. No accessory muscle use. ABDOMEN/GI: Abdomen soft, non-tender. Fundus: Firm, non-tender at umbilicus. GENITOURINARY: Light to moderate bleeding. EXTREMITIES: No cyanosis or edema, non-tender, without signs of DVT. Medications and IVs Current Medications Medications (Trade) Dose Ordered Sig/Mikey Route Start Time Stop Time Status Last Admin (Pitocin Inj) 20 units UNSCH X1 PRN XX 11/21/17 01:15 11/22/17 01:14 (NS Flush) 2 ml BID IV FLUSH 11/21/17 01:15 (NS Flush) 2 ml UNSCH PRN IV FLUSH 11/21/17 01:15 (Tylenol) 650 mg Q4H PRN PO 11/21/17 01:15 11/21/17 04:30 (Motrin) 800 mg Q8H PRN PO 11/21/17 01:15 11/21/17 03:30 (Americaine 20% Top Spr) 1 spray Q4H PRN TOPICAL 11/21/17 01:15 (Tucks Pads) 1 applic QID PRN TOPICAL 11/21/17 01:15 (Mame-Colace) 2 tab Q12H PRN PO 11/21/17 01:15 (Ambien) 5 mg HS PRN PO 11/21/17 01:15 (M-M-R Ii Inj) 0.5 ml ONCE ONCE SQ 11/21/17 16:00 11/21/17 16:01 (Boostrix Inj) 0.5 ml ONCE ONCE IM 11/21/17 16:00 11/21/17 16:01 (Mag-Al Plus Susp Liq) 15 ml Q8H PRN PO 11/21/17 01:15 11/21/17 04:30 (Zofran Odt) 4 mg Q6H PRN PO 11/21/17 01:15 (Percocet 5-325 Mg) 1 tab Q4H PRN PO 11/21/17 08:00 (Percocet 5-325 Mg) 2 tab Q4H PRN PO 11/21/17 08:00 11/21/17 08:19 (Zoloft) 50 mg DAILY PO 11/21/17 09:00 11/21/17 08:18 Assessment/Plan Assessment and Plan 27 yo s/p at 38w2d 1. PPD #0: AF, VSS, continue routine care, anticipate d/c home in next 48hrs. - female fetus 2. depression / mood lability: pt started on zoloft 1-2 months ago, unsure if she has noticed a difference, denies HI/SI today, continue while inpatient, pt will have close follow up in the office after d/c, discussed precautions and when to call the office. 3. MJ use: pt aware of + UDS, was also positive during her antepartum course. CM to see her. Trent Munoz MD November 21, 2017 09:57
[2017-11-21] MEDS ORDERED: ZOLO50TA PO (09:58)
[2017-11-21] MEDS ORDERED: IBUP-232 PO (09:58)
[2017-11-21] MEDS: DOCUSATE SODIUM 50 MG/SENNA 8.6 MG TAB PO PRN ×2 (11:07→22:22)
[2017-11-21] MEDS ORDERED: MEASLES, MUMPS, RUBELLA VACCINE 0.5 ML VIAL SQ ONE (16:00)
[2017-11-21] MEDS ORDERED: DIPHTH/TETANUS/ACEL PERTUSSIS (BOOSTER) 0.5 ML VIAL/PFS IM ONE (16:00)
[2017-11-21] MEDS: ZOLPIDEM TARTRATE 5 MG TAB PO PRN (22:22)
[2017-11-22] MEDS: IBUPROFEN 800 MG TAB PO PRN ×3 (05:09→22:34)
[2017-11-22] MEDS: oxyCODONE/ACETAMINOPHEN 5 MG/325 MG TAB PO PRN ×4 (05:09→22:34)
[2017-11-22 08:00] VITALS: BP 125/82; PULSE 60; RESP 18; TEMP 98; O2SAT 100
--- NOTE | 2017-11-22 09:12 | HHI.OB ---
Subjective Post Day: 1 Remarks Came in and delivered very quickly GBS + no complaints and amublating well Objective Vitals/I&O Vital Signs Date Time Temp Pulse Resp B/P (MAP) Pulse Ox O2 Delivery O2 Flow Rate FiO2 11/22/17 08:00 60 18 125/82 (96) 11/22/17 08:00 98.0 100 11/21/17 21:09 97.7 70 18 127/87 (100) Objective Remarks GENERAL: Well-nourished, well-developed patient. CARDIOVASCULAR: Regular rate and rhythm without murmurs, gallops, or rubs. RESPIRATORY: Breath sounds equal bilaterally. No accessory muscle use. ABDOMEN/GI: Abdomen soft, non-tender. Fundus: Firm, non-tender at umbilicus. GENITOURINARY: Light to moderate bleeding. EXTREMITIES: No cyanosis or edema, non-tender, without signs of DVT. Medications and IVs Current Medications Medications (Trade) Dose Ordered Sig/Mikey Route Start Time Stop Time Status Last Admin (NS Flush) 2 ml BID IV FLUSH 11/21/17 01:15 (NS Flush) 2 ml UNSCH PRN IV FLUSH 11/21/17 01:15 (Tylenol) 650 mg Q4H PRN PO 11/21/17 01:15 11/21/17 04:30 (Motrin) 800 mg Q8H PRN PO 11/21/17 01:15 11/22/17 05:09 (Americaine 20% Top Spr) 1 spray Q4H PRN TOPICAL 11/21/17 01:15 (Tucks Pads) 1 applic QID PRN TOPICAL 11/21/17 01:15 (Mame-Colace) 2 tab Q12H PRN PO 11/21/17 01:15 11/21/17 22:22 (Ambien) 5 mg HS PRN PO 11/21/17 01:15 11/21/17 22:22 (Mag-Al Plus Susp Liq) 15 ml Q8H PRN PO 11/21/17 01:15 11/21/17 04:30 (Zofran Odt) 4 mg Q6H PRN PO 11/21/17 01:15 (Percocet 5-325 Mg) 1 tab Q4H PRN PO 11/21/17 08:00 11/22/17 05:09 (Percocet 5-325 Mg) 2 tab Q4H PRN PO 11/21/17 08:00 11/21/17 22:22 (Zoloft) 50 mg DAILY PO 11/21/17 09:00 11/21/17 08:18 Assessment/Plan Assessment and Plan 27 yo s/p at 38w2d 1. PPD #0: AF, VSS, continue routine care, anticipate d/c home in next 48hrs. - female fetus 2. depression / mood lability: pt started on zoloft 1-2 months ago, unsure if she has noticed a difference, denies HI/SI today, continue while inpatient, pt will have close follow up in the office after d/c, discussed precautions and when to call the office. 3. MJ use: pt aware of + UDS, was also positive during her antepartum course. CM to see her. 11/22/17 PPD 1 ready for discharge but needs 48 hours with GBS positive discussed predisposition towards depression and need for close follow up will return in 2 weeks or Sarahy Dunn MD November 22, 2017 09:12
[2017-11-22] MEDS: SERTRALINE HCL 50 MG TAB PO SCH (10:23)
[2017-11-22] MEDS: DOCUSATE SODIUM 50 MG/SENNA 8.6 MG TAB PO PRN ×2 (10:28→22:40)
[2017-11-22] MEDS ORDERED: diphenhydrAMINE HCL 25 MG CAP PO PRN (20:00)
[2017-11-22 20:30] VITALS: BP 121/79; PULSE 63; RESP 18; TEMP 98
[2017-11-22] MEDS: ZOLPIDEM TARTRATE 5 MG TAB PO PRN (22:34)
[2017-11-23] MEDS: oxyCODONE/ACETAMINOPHEN 5 MG/325 MG TAB PO PRN (06:00)
[2017-11-23] MEDS: IBUPROFEN 800 MG TAB PO PRN (06:00)
[2017-11-23 08:00] VITALS: BP 120/76; PULSE 72; RESP 20; TEMP 97.6; O2SAT 97
--- NOTE | 2017-11-23 08:23 | HHI.OB ---
Subjective Post Day: 2 Remarks Doing well, ready for discharge home Objective Vitals/I&O Vital Signs Date Time Temp Pulse Resp B/P (MAP) Pulse Ox O2 Delivery O2 Flow Rate FiO2 11/23/17 08:00 97.6 72 20 120/76 (91) 97 11/22/17 20:30 98.0 63 18 121/79 (93) Objective Remarks GENERAL: Well-nourished, well-developed patient. CARDIOVASCULAR: Regular rate and rhythm without murmurs, gallops, or rubs. RESPIRATORY: Breath sounds equal bilaterally. No accessory muscle use. ABDOMEN/GI: Abdomen soft, non-tender. Fundus: Firm, non-tender at umbilicus. GENITOURINARY: Light to moderate bleeding. EXTREMITIES: No cyanosis or edema, non-tender, without signs of DVT. Medications and IVs Current Medications Medications (Trade) Dose Ordered Sig/Mikey Route Start Time Stop Time Status Last Admin (NS Flush) 2 ml BID IV FLUSH 11/21/17 01:15 (NS Flush) 2 ml UNSCH PRN IV FLUSH 11/21/17 01:15 (Tylenol) 650 mg Q4H PRN PO 11/21/17 01:15 11/21/17 04:30 (Motrin) 800 mg Q8H PRN PO 11/21/17 01:15 11/23/17 06:00 (Americaine 20% Top Spr) 1 spray Q4H PRN TOPICAL 11/21/17 01:15 (Tucks Pads) 1 applic QID PRN TOPICAL 11/21/17 01:15 (Mame-Colace) 2 tab Q12H PRN PO 11/21/17 01:15 11/22/17 22:40 (Ambien) 5 mg HS PRN PO 11/21/17 01:15 11/22/17 22:34 (Mag-Al Plus Susp Liq) 15 ml Q8H PRN PO 11/21/17 01:15 11/21/17 04:30 (Zofran Odt) 4 mg Q6H PRN PO 11/21/17 01:15 (Percocet 5-325 Mg) 1 tab Q4H PRN PO 11/21/17 08:00 11/23/17 06:00 (Percocet 5-325 Mg) 2 tab Q4H PRN PO 11/21/17 08:00 11/22/17 12:22 (Zoloft) 50 mg DAILY PO 11/21/17 09:00 11/22/17 10:23 (Benadryl) 25 mg Q4H PRN PO 11/22/17 20:00 11/22/17 21:06 Assessment/Plan Assessment and Plan 27 yo s/p at 38w2d 1. PPD #2: AF, VSS, discharge home today. - female fetus 2. depression / mood lability: Doing well, continue Zoloft, follow-up in office within 2 weeks Trent Munoz MD November 23, 2017 08:23
[2017-11-23] MEDS: SERTRALINE HCL 50 MG TAB PO SCH (09:27)
== END 2017-11-23 10:33 | disposition home or self-care (01) | DRG 775 ==
LOC: HOBED 20:06 → H2EA 20:31 → H1EA 11-21 03:45
PROVIDERS: ADMIT Obstetrics & Gynecology; ATTEND Obstetrics & Gynecology
PROC: 00HU33Z Insertion of Infusion Device into Spinal Canal, Percutaneous Approach (ICD-10-PCS; 2017-11-20)
PROC: 3E0R3BZ Introduction of Anesthetic Agent into Spinal Canal, Percutaneous Approach (ICD-10-PCS; 2017-11-20)
PROC: 10E0XZZ Delivery of Products of Conception, External Approach (ICD-10-PCS; principal; 2017-11-21)
PROC: 10907ZC Drainage of Amniotic Fluid, Therapeutic from Products of Conception, Via Natural or Artificial Opening (ICD-10-PCS; 2017-11-21)
DX: O99.824 Streptococcus B carrier state complicating childbirth (principal); O99.344 Other mental disorders complicating childbirth; F32.9 Major depressive disorder, single episode, unspecified; O99.324 Drug use complicating childbirth; F12.90 Cannabis use, unspecified, uncomplicated; Z3A.38 38 weeks gestation of pregnancy; Z37.0 Single live birth; Z23 Encounter for immunization
CPT/HCPCS: 59025; 80307; 81001; 85025; 90715; 99283; G0481; J2540; J2590